=== PATIENT | male | born 1970 | race American Indian/Alaskan Native ===

== ENCOUNTER 2020-10-28 00:30 | Emergency (ER) | payer OTHER ==
[2020-10-28 03:48] VITALS: BP 147/94
--- NOTE | 2020-10-28 04:01 | Emergency Department Report ---
ED General Adult HPI - General Chief complaint: High BP Stated complaint: HIGH BP Source: patient Mode of arrival: Ambulatory Limitations: No Limitations - History of Present Illness Initial comments: Patient is a 50-year-old -[place]iss male with a history of hypertension who presents to the ED with complaint of acute onset persistently elevated blood pressure for the last 12 hours. Patient states that he takes HCTZ 25 mg, amlodipine 10 mg and lisinopril 40 mg daily. Patient states that he had an appointment with his primary care physician about 12 hours ago for the same. The patient states that the visit was however virtual and when his blood pressure persistently continue to be elevated, his primary care physician advised him to come to the ED for evaluation. Patient denies chest pain, shortness of breath, abdominal pain, nausea, vomiting, back pain, numbness and tingling or weakness of upper and lower extremities bilaterally, change in vision, dizziness, syncope, numbness and tingling or weakness of upper extremities bilaterally. MD Complaint: Elevated blood pressure -: Sudden, hour(s) (12) Location: head Radiation: non-radiation Severity scale (0 -10): 0 Quality: dull Consistency: constant Improves with: none Worsens with: none Associated Symptoms: denies other symptoms, headaches, malaise. denies: confusion, chest pain, cough, diaphoresis, fever/chills, loss of appetite, nausea/vomiting, rash, seizure, shortness of breath, syncope, weakness Treatments Prior to Arrival: none - Related Data Allergies Allergy/AdvReac Type Severity Reaction Status Date / Time No Known Allergies Allergy Unverified 10/28/20 00:49 ED Review of Systems ROS: Stated complaint: HIGH BP Other details as noted in HPI Constitutional: other (Elevated blood pressure). denies: chills, fever Eyes: denies: eye pain, eye discharge, vision change ENT: denies: ear pain, throat pain Respiratory: denies: cough, shortness of breath, wheezing Cardiovascular: denies: chest pain, palpitations Endocrine: no symptoms reported Gastrointestinal: denies: abdominal pain, nausea, diarrhea Genitourinary: denies: urgency, dysuria Musculoskeletal: denies: back pain, joint swelling, arthralgia Skin: denies: rash, lesions Neurological: denies: headache, weakness, paresthesias Psychiatric: denies: anxiety, depression Hematological/Lymphatic: denies: easy bleeding, easy bruising ED Past Medical Hx - Past Medical History Previous Medical History?: Yes Hx Hypertension: Yes - Surgical History Past Surgical History?: Yes Additional Surgical History: Back - Social History Smoking Status: Never Smoker ED Physical Exam - General Limitations: No Limitations General appearance: alert, in no apparent distress - Head Head exam: Present: atraumatic, normocephalic, normal inspection - Eye Eye exam: Present: normal appearance, PERRL, EOMI Pupils: Present: normal accommodation - ENT ENT exam: Present: normal exam, normal orophraynx, mucous membranes moist, TM's normal bilaterally, normal external ear exam - Neck Neck exam: Present: normal inspection, full ROM - Respiratory Respiratory exam: Present: normal lung sounds bilaterally. Absent: respiratory distress, wheezes, rales, rhonchi, chest wall tenderness, decreased breath sounds, prolonged expiratory - Cardiovascular Cardiovascular Exam: Present: regular rate, normal rhythm, normal heart sounds. Absent: systolic murmur, diastolic murmur, rubs, gallop - GI/Abdominal GI/Abdominal exam: Present: soft, normal bowel sounds. Absent: tenderness, guarding, rebound, hyperactive bowel sounds, hypoactive bowel sounds - Extremities Exam Extremities exam: Present: normal inspection, full ROM, normal capillary refill - Back Exam Back exam: Present: normal inspection, full ROM. Absent: tenderness, CVA tenderness (R), CVA tenderness (L), muscle spasm, paraspinal tenderness, vertebral tenderness - Neurological Exam Neurological exam: Present: alert, oriented X3, CN II-XII intact, normal gait, reflexes normal - Psychiatric Psychiatric exam: Present: normal affect, normal mood - Skin Skin exam: Present: warm, dry, intact, normal color. Absent: rash ED Course Vital Signs 10/28/20 10/28/20 00:38 03:47 Temperature 98.3 F Pulse Rate 96 H 83 Respiratory 18 18 Rate Blood Pressure 180/121 Blood Pressure 147/94 [Right] O2 Sat by Pulse 96 95 Oximetry ED Medical Decision Making - Medical Decision Making This is a 50-year-old -[place] male with a history of hypertension who presents to the ED with complaint of acute onset persistently elevated blood pressure for the last 12 hours. Patient states that he takes HCTZ 25 mg, amlodipine 10 mg and lisinopril 40 mg daily. Patient states that he had an appointment with his primary care physician about 12 hours ago for the same. The patient states that the visit was however virtual and when his blood pressure persistently continue to be elevated, his primary care physician advised him to come to the ED for evaluation. In the ED, patient is alert and oriented x3 and is not in distress, hypertensive and afebrile in triage. Patient has not exhibited any neurological symptoms. Patient has also not had or experienced any cardiac pathology related symptoms. When the vital signs were rechecked, the patient's blood pressure improved significantly to 147/94. Patient was discharged home and advised to follow-up with his primary care physician in 2 to 3 days for reevaluation, and to continue taking his regular medications for blood pressure. Patient was advised return to the ED immediately if symptoms get worse. - Differential Diagnosis Hypertensive emergency; uncontrolled hypertension, anxiety Critical care attestation.: If time is entered above; I have spent that time in minutes in the direct care of this critically ill patient, excluding procedure time. ED Disposition Clinical Impression: Uncontrolled stage 2 hypertension Disposition: DC-01 TO HOME OR SELFCARE Is pt being admited?: No Does the pt Need Aspirin: No Condition: Stable Instructions: Hypertension (ED), Hypertension, Adult, [id number] Additional Instructions: Continue taking your previously prescribed blood pressure medications, follow-up with the primary care physician in 2 to 3 days for reevaluation. Return to the ED immediately if symptoms get worse. Referrals: ALLYSON DAWKINS MD [Staff Physician] - 3-5 Days Time of Disposition: 03:57 Print Language: ESTONIAN
== END 2020-10-28 04:20 | disposition home or self-care (01) ==
LOC: ED 00:30
DX: I10 Essential (primary) hypertension (principal)
CPT/HCPCS: 99282